=== PATIENT | male | born 1960 | race Caucasian/White ===

== ENCOUNTER 2017-10-10 01:56 | Emergency (ER) | payer MEDICAID, OTHER ==
[~2017-10-10] VITALS: Ht 190.5 cm; Wt 90.7 kg
[2017-10-10 02:28] VITALS: BP 100/60
--- NOTE | 2017-10-10 02:30 | NUR ---
called pt in wr, no reponse
--- NOTE | 2017-10-10 03:00 | NUR ---
called pt in wr, no reponse
--- NOTE | 2017-10-10 03:28 | NUR ---
called pt in wr, no reponse
--- NOTE | 2017-10-10 04:30 | NUR ---
called pt in wr, no reponse
== END 2017-10-10 04:31 | disposition home or self-care (01) ==
LOC: ER 02:04
DX: R11.2 Nausea with vomiting, unspecified (principal); R19.7 Diarrhea, unspecified; Z53.21 Procedure and treatment not carried out due to patient leaving prior to being seen by health care provider
CPT/HCPCS: A4606; Z7610

== ENCOUNTER 2017-10-10 08:33 | Emergency (ER) | payer MEDICAID, OTHER ==
[~2017-10-10] VITALS: Ht 190.5 cm; Wt 90.7 kg
[2017-10-10] MEDS ORDERED: LOPERAMIDE HCL (2 MG CAP) 2 MG CAPSULE PO ONE ×2 (09:20→09:30)
[2017-10-10] MEDS ORDERED: ONDANSETRON HCL/PF 4 MG/2 ML VIAL ONE (09:20)
[2017-10-10] MEDS ORDERED: ONDANSETRON HCL/PF 4 MG/2 ML VIAL IVP ONE (09:30)
[2017-10-10] MEDS ORDERED: IV NS 0.9% 1,000 ML BAG IV ONE (09:30)
[2017-10-10 09:32] LABS: BASOPHILS # (AUTO) 0.2 /CMM (0.0-0.2); BASOPHILS % (AUTO) 1.8 % (0.0-2.0); EOSINOPHILS % (AUTO) 2.1 % (0.0-6.0); HEMATOCRIT 40 % (39-51); HEMOGLOBIN 13.2 g/dL (13.5-17.5); LYMPHOCYTES # (AUTO) 1.1 /CMM (0.8-4.8); LYMPHOCYTES % (AUTO) 11.9 % (20.0-44.0); MEAN CORPUSCULAR HGB CONC 33 g/dl (31.0-36.0); MEAN CORPUSCULAR VOLUME 86 fL (80-96); MONOCYTES # (AUTO) 0.6 /CMM (0.1-1.30); MONOCYTES % (AUTO) 6.7 % (2.0-12.0); NEUTROPHILS # (AUTO) 7.3 /CMM (1.8-8.9); NEUTROPHILS % (AUTO) 77.5 % (43.0-81.0); PLATELET COUNT (AUTO) 454 /CMM (150-450); RDW COEFFICIENT OF VARIATION 12.9 (11.5-15.0); RED BLOOD CELL COUNT(AUTO) 4.65 MIL/uL (4.5-6.0); WHITE BLOOD COUNT (AUTO) 9.4 K/uL (4.3-11.0)
[2017-10-10 09:42] LABS: CALCIUM, SERUM 8.8 mg/dL (8.5-10.1); CREATININE 0.8 mg/dL (0.6-1.3)
[2017-10-10 09:48] LABS: ALBUMIN 3.5 g/dL (3.4-5.0); BILIRUBIN,TOTAL 0.2 mg/dL (0.2-1.0); TOTAL PROTEIN, SERUM 8.7 g/dL (6.4-8.2)
--- NOTE | 2017-10-10 12:51 | NUR ---
IV removed. Catheter intact and site benign. Pressure and 4x4 applied to site. No bleeding noted.
--- NOTE | 2017-10-10 12:52 | NUR ---
Patient discharged to home in stable condition. Written and verbal after care instructions given. Patient verbalizes understanding of instruction.
[2017-10-10 12:53] VITALS: BP 140/70
== END 2017-10-10 12:59 | disposition home or self-care (01) ==
LOC: ER 08:35
DX: E86.0 Dehydration (principal); R11.10 Vomiting, unspecified; R19.7 Diarrhea, unspecified; Z59.0 Homelessness; Z85.028 Personal history of other malignant neoplasm of stomach
CPT/HCPCS: 36415; 80053; 83690; 85025; 96361; 96374; 99284; A4606; J2405; J7030; Z7610

== ENCOUNTER 2017-12-14 18:51 | Emergency (ER) | payer MEDICAID ==
[~2017-12-14] VITALS: Ht 190.5 cm; Wt 90.7 kg
--- NOTE | 2017-12-14 19:10 | NUR ---
BIB RA 860,C/O HEADACHE, PHOTOPHOBIA, AND +N/V X TODAY. PT STATES HE HAS CHRONIC HX OF HEADACHE. PT IS AAOX4. PT'S SPEECH WELL ARTICULATED AND NO S/S OF OBVIOUS WEAKNESS/ DEFORMITIES NOTED. SKIN WNL. RESP EVEN AND UNLABORED. NO S/S OF ACUTE DSITRESS NOTED. PT PLACED ON SHOT CORE DRILL OPERATOR AND POX. PT SAFETY AND COMFORT MEASURES IN PLACE. AWAITING MD FOR EVAL
--- NOTE | 2017-12-14 19:16 | NUR ---
ASSUMED CARE OF PT. PT RESTING IN BED WITH NO S/S OF DISTRESS NOTED
[2017-12-14] MEDS ORDERED: IV NS 0.9% 1,000 ML BAG IV ONE (19:30)
[2017-12-14] MEDS ORDERED: ONDANSETRON HCL/PF 4 MG/2 ML VIAL IVP ONE (19:30)
[2017-12-14] MEDS ORDERED: KETOROLAC TROMETHAMINE INJ 30 MG/ML VIAL IV ONE (19:30)
[2017-12-14] MEDS ORDERED: KETOROLAC TROMETHAMINE INJ 30 MG/ML VIAL ONE (19:45)
[2017-12-14] MEDS ORDERED: ONDANSETRON HCL/PF 4 MG/2 ML VIAL ONE (19:45)
[2017-12-14 19:55] LABS: BASOPHILS # (AUTO) 0.5 /CMM (0.0-0.2); BASOPHILS % (AUTO) 2.2 % (0.0-2.0); EOSINOPHILS % (AUTO) 0.8 % (0.0-6.0); HEMATOCRIT 29 % (39-51); HEMOGLOBIN 10.2 g/dL (13.5-17.5); LYMPHOCYTES % (AUTO) 4.6 % (20.0-44.0); MEAN CORPUSCULAR HEMOGLOBIN 30 PG (26.0-33.0); MEAN CORPUSCULAR HGB CONC 35 g/dl (31.0-36.0); MEAN CORPUSCULAR VOLUME 84 fL (80-96); MONOCYTES # (AUTO) 1.1 /CMM (0.1-1.30); MONOCYTES % (AUTO) 4.8 % (2.0-12.0); NEUTROPHILS # (AUTO) 19.9 /CMM (1.8-8.9); NEUTROPHILS % (AUTO) 87.6 % (43.0-81.0); PLATELET COUNT (AUTO) 437 /CMM (150-450); RDW COEFFICIENT OF VARIATION 13.8 (11.5-15.0); RED BLOOD CELL COUNT(AUTO) 3.45 MIL/uL (4.5-6.0); WHITE BLOOD COUNT (AUTO) 22.7 K/uL (4.3-11.0)
[2017-12-14 20:09] LABS: CALCIUM, SERUM 8.3 mg/dL (8.5-10.1); CARBON DIOXIDE 30 mmol/L (21-32); CHLORIDE 101 mmol/L (98-107); CREATININE 0.8 mg/dL (0.6-1.3); GLUCOSE 116 mg/dL (74-106); POTASSIUM 3.5 mmol/L (3.5-5.1); SODIUM SERUM 137 mmol/L (136-145); UREA NITROGEN, BLOOD 14 mg/dL (7-18)
[2017-12-14 20:12] LABS: ALCOHOL, BLOOD < 3 mg/dL (0-0)
--- NOTE | 2017-12-14 20:28 | NUR ---
PT UNABLE TO PROVIDE URINE AT THIS TIME. WATER PROVIDED TO PT. WILL CONTINUE TO MONITOR PT
[2017-12-14] MEDS ORDERED: ACETAMINOPHEN ES 500 MG TABLET ONE (21:45)
--- NOTE | 2017-12-14 21:49 | NUR ---
Patient discharged to home in stable condition. Written and verbal after care instructions given. Patient verbalizes understanding of instruction.IV removed. Catheter intact and site benign. Pressure and 4x4 applied to site. No bleeding noted. no s/s of distress noted upon discharge. Pt ambulated with steady gait noted.
[2017-12-14 21:50] VITALS: BP 130/74
[2017-12-14] MEDS ORDERED: ACETAMINOPHEN ES 500 MG TABLET PO ONE (22:00)
== END 2017-12-14 21:52 | disposition home or self-care (01) ==
LOC: ER 18:55
DX: R51 Headache (principal); F17.200 Nicotine dependence, unspecified, uncomplicated; Z59.0 Homelessness; Z60.2 Problems related to living alone
CPT/HCPCS: 36415; 70450-TC; 80048-TC; 85025-TC; A4606; G0480; J1885; J2405; J7030; Z7610

== ENCOUNTER 2018-01-01 12:30 | Inpatient (IN) | payer MEDICAID ==
[~2018-01-01] VITALS: Ht 188 cm; Wt 88.5 kg
--- NOTE | 2018-01-01 12:45 | NUR ---
BIBRA 88 C/O NAUSEA, NO VOMITING. PT SLEEPY, AAOX3, CALM & COOPERATIVE, POSS HOMELESS, PT RT LOWER LEG REDNESS/SWOLLEN WITH WOUND INFECTION. PT STABLE NAD NOTED @ THIS TIME.
[2018-01-01] MEDS ORDERED: IV NS 0.9% 1,000 ML BAG IV ONE (13:30)
[2018-01-01] MEDS ORDERED: CLINDAMYCIN 600 MG in IV D5W 100 ML IV ONE (13:30)
[2018-01-01 13:42] LABS: BASOPHILS # (AUTO) 0.6 /CMM (0.0-0.2); BASOPHILS % (AUTO) 3.6 % (0.0-2.0); HEMATOCRIT 35 % (39-51); HEMOGLOBIN 11.5 g/dL (13.5-17.5); LYMPHOCYTES # (AUTO) 0.9 /CMM (0.8-4.8); LYMPHOCYTES % (AUTO) 5.2 % (20.0-44.0); MEAN CORPUSCULAR HEMOGLOBIN 27 PG (26.0-33.0); MEAN CORPUSCULAR HGB CONC 33 g/dl (31.0-36.0); MEAN CORPUSCULAR VOLUME 83 fL (80-96); MONOCYTES % (AUTO) 6.2 % (2.0-12.0); NEUTROPHILS # (AUTO) 14.3 /CMM (1.8-8.9); PLATELET COUNT (AUTO) 373 /CMM (150-450); RDW COEFFICIENT OF VARIATION 14.6 (11.5-15.0); RED BLOOD CELL COUNT(AUTO) 4.25 MIL/uL (4.5-6.0); WHITE BLOOD COUNT (AUTO) 16.8 K/uL (4.3-11.0)
[2018-01-01 13:54] LABS: CALCIUM, SERUM 8.5 mg/dL (8.5-10.1); POTASSIUM 3.5 mmol/L (3.5-5.1)
[2018-01-01 13:57] LABS: INR 1.07 (0.85-1.15)
[2018-01-01 13:59] LABS: ALBUMIN 2.6 g/dL (3.4-5.0); BILIRUBIN,DIRECT 0.1 mg/dL (0.0-0.2); BILIRUBIN,TOTAL 0.4 mg/dL (0.2-1.0); TOTAL PROTEIN, SERUM 8.2 g/dL (6.4-8.2)
[2018-01-01] MEDS ORDERED: ACETAMINOPHEN ES 500 MG TABLET PO ONE (14:00)
--- NOTE | 2018-01-01 14:37 | NUR ---
PT SLEEPING EASILY AWAKEN WITH VERBAL STIMULI. DENIES CP, SOB, DIZZINESS, N/V & NAD NOTED @ THIS TIME. WILL CONT TO MONITOR.
[2018-01-01 14:44] LABS: APPEARANCE,URINE Clear (CLEAR); BILIRUBIN,URINE Negative (NEGATIVE); BLOOD, URINE Negative Ery/uL (NEGATIVE); COLOR,URINE Yellow (YELLOW); KETONES,URINE Negative (NEGATIVE); LEUKOCYTE ESTERASE ,URINE Negative (NEGATIVE); NITRITE, URINE Negative (NEGATIVE); PH,URINE 8.5 (5.0-8.0); PROTEIN,URINE Negative (NEGATIVE); UGLUCOSE Negative (NEGATIVE)
[2018-01-01 14:46] LABS: BACTERIA,URINE None seen /HPF (None Seen); RBC,URINE 0-2 /HPF (0-2); SQUAMOUS EPITHELIAL CELL,UR Rare /HPF (None Seen); WBC,URINE 0-2 /HPF (0-3)
[2018-01-01] MEDS ORDERED: ACETAMINOPHEN ES 500 MG TABLET ONE (15:40)
--- NOTE | 2018-01-01 15:46 | NUR ---
PT IS ASSIGNED 316-1
[2018-01-01] MEDS ORDERED: CLINDAMYCIN 300 MG in IV D5W 50 ML IV SCH (16:00)
[2018-01-01] MEDS ORDERED: CLINDAMYCIN 300 MG in IV D5W 50 ML IV ONE (16:00)
[2018-01-01] MEDS ORDERED: IV NS 0.9% 1,000 ML IV PRN (16:31)
[2018-01-01] MEDS ORDERED: VANCOMYCIN 1 GM in IV NS 0.9% 250 ML IV SCH (17:00)
[2018-01-01] MEDS ORDERED: MAGNESIUM HYDROXIDE 30 ML UDC PO PRN (17:00)
[2018-01-01] MEDS ORDERED: ACETAMINOPHEN 325 MG TABLET PO PRN (17:00)
[2018-01-01] MEDS ORDERED: ONDANSETRON HCL/PF 4 MG/2 ML VIAL IVP PRN (17:00)
[2018-01-01] MEDS ORDERED: MAG HYDROX/AL HYDROX/SIMETH 30 ML UDC PO PRN (17:00)
[2018-01-01] MEDS ORDERED: ZOLPIDEM TARTRATE 5 MG TABLET PO PRN (17:00)
[2018-01-01] MEDS ORDERED: Z GUARD REMEDY 2 OZ OINT TP PRN (17:00)
--- NOTE | 2018-01-01 17:00 | NUR ---
MS RN NOTES RECEIVED PATIENT IN BED ALERT, ORIENTED X3 NO SOB OR ACUTE DISTRESS NOTED. PATIENT NOTED TO BE WITHDRAWN. OBTAINED MINIMAL INFORMATION FROM PATIENT. PATIENT IS HOMELESS. NOTED WITH BILATERAL RIGHT LEG SCABS AND RIGHT HAND SCAB. PERIPHERAL IV ON RIGHT AC INTACT PATENT. BED IN LOW LOCKED POSITION. CALL LIGHT WITHIN REACH. WILL CONTINUE TO MONITOR.
[2018-01-01 17:30] VITALS: BP 116/63
[2018-01-01] MEDS ORDERED: FEE PK DOSING 1 MIN EA MC ONE (17:37)
[2018-01-01] MEDS ORDERED: PIPERACILLIN /TAZOBACTAM 4.5 G in IV NS 0.9% 50 ML IV SCH (18:00)
[2018-01-01] MEDS: PIPERACILLIN /TAZOBACTAM 3.375 G in IV D5W 50 ML IV SCH (19:25)
--- NOTE | 2018-01-01 19:25 | NUR ---
MS/RN OPENING NOTES PT RECEIVED AWAKE, RESTING COMFORTABLY IN BED. A/OX3. ON ROOM AIR, BREATHING EVEN AND UNLABORED. DENIES SOB OR PAIN AT THIS TIME. IV TO LAC PATENT AND INTACT RUNNING IVF ORDERED. BED IN LOW/LOCKED POSITION WITH CALL LIGHT IN REACH. SIDE RAILS UPX3. WILL CONTINUE TO MONITOR
--- NOTE | 2018-01-01 19:26 | NUR ---
MS RN NOTES PATIENT IN BED RESTING NO SOB OR ACUTE DISTRESS NOTED. ALL DUE MEDICATIONS ADMINISTERED. ALL NEEDS MET. WILL ENDORSE TO PM SHIFT ANGE.
[2018-01-01 20:00] VITALS: BP 118/62
--- NOTE | 2018-01-01 20:35 | NUR ---
MS/RN NOTES FOUND RED KNIFE IN PT'S BED. PLACED IN BAG WITH PT'S INTERVENTIONAL SALE CONSULTANT IT AND PLACED IN NURSING STATION SAFE. PT AWARE. SUPERVISOR INSPECTION ROOM MADE AWARE. ADDED TO BELONGINGS CHECKLIST IN CHART.
[2018-01-01] MEDS: VANCOMYCIN 1.25 GM in IV NS 0.9% 500 ML IV SCH (20:41)
[2018-01-02] MEDS: PIPERACILLIN /TAZOBACTAM 3.375 G in IV D5W 50 ML IV SCH ×5 (00:28→23:00)
[2018-01-02] MEDS: HYDROCODONE/APAP 5/325MG 1 EACH TABLET PO PRN ×4 (00:37→17:14)
--- NOTE | 2018-01-02 00:37 | NUR ---
MS/RN NOTES PT C/O 5/10 ABDOMINAL PAIN. REQUESTING PAIN MEDICATION. ADMINISTERED PRN NORCO 5/325 PO ORDERED.
--- NOTE | 2018-01-02 06:43 | NUR ---
MS/RN NOTES PT'S IV INFILTRATED. PT IS A HARD STICK. ATTEMPTED 2X FOR IV INSERTION. PT BECOMING AGITATED. WILL TRY AGAIN LATER LAB TRIED MULTIPLE ATTEMPTS TO DRAW BLOOD, ONLY ABLE TO DRAW ENOUGH BLOOD FOR CBC. WILL TRY AGAIN LATER.
[2018-01-02 07:24] LABS: WHITE BLOOD COUNT (AUTO) 10.8 K/uL (4.3-11.0)
[2018-01-02 07:25] LABS: HEMATOCRIT 34 % (39-51); HEMOGLOBIN 11.4 g/dL (13.5-17.5); MEAN CORPUSCULAR HEMOGLOBIN 28 PG (26.0-33.0); MEAN CORPUSCULAR HGB CONC 34 g/dl (31.0-36.0); MEAN CORPUSCULAR VOLUME 84 fL (80-96); RDW COEFFICIENT OF VARIATION 15.5 (11.5-15.0); RED BLOOD CELL COUNT(AUTO) 4.02 MIL/uL (4.5-6.0)
[2018-01-02 07:26] LABS: BASOPHILS % (AUTO) 0.9 % (0.0-2.0); LYMPHOCYTES % (AUTO) 10.2 % (20.0-44.0); MONOCYTES % (AUTO) 11.3 % (2.0-12.0); NEUTROPHILS % (AUTO) 77.6 % (43.0-81.0); PLATELET COUNT (AUTO) 291 /CMM (150-450)
[2018-01-02 07:27] LABS: BASOPHILS # (AUTO) 0.1 /CMM (0.0-0.2); LYMPHOCYTES # (AUTO) 1.1 /CMM (0.8-4.8); MONOCYTES # (AUTO) 1.2 /CMM (0.1-1.30); NEUTROPHILS # (AUTO) 8.4 /CMM (1.8-8.9)
--- NOTE | 2018-01-02 07:37 | NUR ---
MS/RN CLOSING NOTES PT AWAKE, RESTING IN BED. A/OX3, IMPULSIVE AT TIMES. ON ROOM AIR, BREATHING EVEN AND UNLABORED. NO S/S OF DISTRESS OR SOB. C/O ABDOMINAL PAIN, ADMINISTERED PRN NORCO ORDERED. IV TO LAC INFILTRATED, 2X ATTEMPTS TO REINSERT, PT WANTS TO TRY AGAIN LATER. LAB ONLY ABLE TO COLLECT ENOUGH BLOOD FOR CBC. DAY SHIFT RN MADE AWARE. NO SIGNIFICANT CHANGES OVERNIGHT. KEPT PT COMFORTABLE DURING SHIFT. ALL NEEDS MET. BED IN LOW/LOCKED POSITION WITH CALL LIGHT IN REACH. SIDE RAILS UPX2. ENDORSED TO DAY SHIFT RN ANGE.
--- NOTE | 2018-01-02 07:45 | NUR ---
RN NOTES PATIENT A/OX4, BREATHING EVEN AND UNLABORED, NO SOB NOTED, PATIENT HAS NO PIV ACCESS AT THIS TIME, OFFERED TO INSERT, PATIENT STATED, "LATER". NEEDS ATTENDED, CALL LIGHT WITHIN REACH, WILL CONTINUE TO MONITOR.
[2018-01-02 08:00] VITALS: BP 125/66
[2018-01-02] MEDS: VANCOMYCIN 1.25 GM in IV NS 0.9% 500 ML IV SCH ×2 (08:47→19:26)
--- NOTE | 2018-01-02 12:00 | NUR ---
WOUND CARE CONSULT PATIENT SEEN AND SKIN INTEGRITY ASSESSMENT DONE. PLEASE SEE EXTRACT MIXER ASSESSMENT IN PCS. PATIENT WITH RUSH OF 20. PATIENT IS INDEPENDENT WITH BED MOBILITY AND AMBULATORY WITH STEADY GAIT. ALL PRESSURE ULCER PREVENTION MEASURES NOTED TO BE IN PLACE PER PLAN OF CARE. WILL SEE PRN. Addendum: 01/02/18 at 1239 by SANFORD BECK RN Amended: Links added.
--- NOTE | 2018-01-02 12:03 | NUR ---
Social service consult requested by Dr. Raymond for homelessness. Pt. is a 57 year old male who was admitted to [facility] for cellulitis and sepsis. SW met with pt. bedside. Pt. is alert and oriented x 3. Pt. appeared disheveled. Pt. was grimacing stating he is in pain and not feeling well. Pt. was cooperative with SW during the assessment. Pt. states he has been homeless since 2011 and has been living on the streets. Pt. receives General Relief in the amount of $250/ month and food stamps monthly. SW inquired with pt. if he is linked with [employer] [facility] [employer] for homeless resources. Pt. stated, " he is trying to ." SW encouraged pt. to link up with [employer] so he can initiate a housing referral. Pt. understood. SW offered pt. homeless longterm placement, however, pt. declined. Pt. is willing to accept Homeless longterm resources and food bank resources. SW to give pt. the resources prior to discharge. Pt. denies current drug and alcohol use but has a history of drug use in the past. Pt's drug of choice was cocaine and marijuana. Pt. states he uses marijuana once in a while. Pt. has a psychiatric diagnosis but could not elaborate his diagnosis. Pt. has a history of psychiatric hospitalizations and his last hospitalization was two years ago. Pt. denies suicidal/homicidal ideations and visual/auditory hallucinations at this time. LARISSA updated LEYDA Busby and pt's REYES Watkins regarding pt's discharge plan. No other social service needs are requested at this time. SW is available, if needed. Pt. to sign Homeless Patient Waiver Form prior to discharge.
[2018-01-02 16:00] VITALS: BP 121/71
--- NOTE | 2018-01-02 18:29 | NUR ---
RN NOTES PATIENT A/OX3, REFUSED LAB WORKS ALL DAY,BREATHING EVEN AND UNLABORED, PATIENT SLEPT MOSTLY THROUGHOUT THE SHIFT, COMPLAINED OF PAIN FROM TIME TO TIME, DENIES PAIN AT THIS TIME. NEEDS ATTENDED AND MET, CALL LIGHT WITHIN REACH, WILL ENDORSE TO MISSILE TECHNICIAN FOR ANGE.
--- NOTE | 2018-01-02 19:14 | NUR ---
MS RN OPENING NOTES: RECEIVED PT ON ROOM AIR AND TOLERATING WELL. PT AWAKE AND RESTING IN BED COMFORTABLY. PT HAS IV ON R UA #22G AND IS PATENT AND INTACT. EXPLAINED TO PT THAT HE HAS TO BE CONNECTED TO IV FLUIDS ORDERED BY DOCTOR AND HAS A SCHEDULED ABX. CALL LIGHT WITHIN PT'S REACH. BED KEPT IN LOW, LOCKED POSITION, AND SIDE RAILS X 2UP. WILL CONTINUE TO MONITOR PT.
[2018-01-02 20:00] VITALS: BP 131/66
--- NOTE | 2018-01-02 20:18 | NUR ---
MS RN NOTES: PT REQUESTING FOR SLEEPING AID. PT VERBALIZING HE HASN'T SLEPT FOR DAYS. PT WAS ADMINISTERED AMBIEN 5MG PO. WILL CONTINUE TO MONITOR PT.
[2018-01-02] MEDS: HYDROCODONE/APAP 10/325MG 1 EA TABLET PO PRN (21:13)
--- NOTE | 2018-01-02 21:15 | NUR ---
MS RN NOTES: PT COMPLAINING OF ABDOMEN 8/10 PAIN. PT RESTLESS AND IRRITATED. PT WAS ADMINISTERED NORCO 10. WILL CONTINUE TO MONITOR PT.
--- NOTE | 2018-01-02 23:24 | NUR ---
MS RN NOTES: DR. SAEED ON FLOOR. INFORMED HIM THAT AMBIEN 5MG DID NOT HELP FOR PT. PT STILL NOT SLEEPING AND COMPLAINING HE HAS NOT SLEPT FOR DAYS. GOT ORDER FOR XANAX 1MG PO Q6HR PRN.
[2018-01-02] MEDS ORDERED: ALPRAZOLAM 1 MG TABLET PO PRN (23:30)
[2018-01-03] MEDS: HYDROCODONE/APAP 10/325MG 1 EA TABLET PO PRN ×3 (01:28→10:02)
--- NOTE | 2018-01-03 01:30 | NUR ---
MS RN NOTES: PT COMPLAINING OF 8/10 ABDOMEN PAIN. PT IRRITATED AND REQUESTING FOR PAIN MED. PT WAS ADMINISTERED NORCO 10. WILL CONTINUE TO MONITOR PT.
--- NOTE | 2018-01-03 03:44 | NUR ---
MS RN NOTES: SPOKE WITH DR. SAEED. INFORMED HIM THAT PT IS HAVING DIARRHEA AND PT IS REQUESTING FOR ANTIDIARRHEA AGENT. GOT ORDER FOR IMODIUM 2MG PO Q4HR PRN.
[2018-01-03] MEDS: LOPERAMIDE HCL (2 MG CAP) 2 MG CAPSULE PO PRN ×2 (03:50→08:43)
[2018-01-03] MEDS: PIPERACILLIN /TAZOBACTAM 3.375 G in IV D5W 50 ML IV SCH (05:00)
[2018-01-03 05:30] VITALS: BP 135/79
--- NOTE | 2018-01-03 06:48 | NUR ---
MS RN CLOSING NOTES: ALL NEEDS WERE ATTENDED AND ANTICIPATED FOR. PT ASLEEP AT THIS TIME AND RESTING COMFORTABLY. PT HAS IV ON R ARM AND IS BEING INFUSED WITH IV NS AT 75ML/HR. NO SOB NOTED. NO S/S OF DISTRESS. CALL LIGHT WITHIN PT'S REACH. BED KEPT IN LOW, LOCKED POSITION, AND SIDE RAILS X 2UP. WILL ENDORSE TO AM NURSE FOR ANGE.
--- NOTE | 2018-01-03 07:30 | NUR ---
CONTINUOUS PROCESS TANNER ROTARY DRUM INITIAL NOTES RECEIVED PATIENT SLEEPING IN BED, EASY TO AROUSE, AOX3, NO SIGNS OF DISTRESS, ON ROOM AIR, AMBULATORY, AMINATA 22G IV NS @ 75 ML/HR, RIGHT LEG CELLULITES NOTED, NO PAIN AT THIS TIME, BED IN LOW AND LOCKED POSITION CALL LIGHT WITHIN REACH, WILL CONTINUE TO MONITOR.
[2018-01-03 07:41] LABS: CALCIUM, SERUM 8.5 mg/dL (8.5-10.1); CREATININE 0.8 mg/dL (0.6-1.3); POTASSIUM 3.3 mmol/L (3.5-5.1)
[2018-01-03 07:42] LABS: BASOPHILS # (AUTO) 0.1 /CMM (0.0-0.2); BASOPHILS % (AUTO) 1.3 % (0.0-2.0); EOSINOPHILS % (AUTO) 0.6 % (0.0-6.0); HEMATOCRIT 35 % (39-51); HEMOGLOBIN 11.7 g/dL (13.5-17.5); LYMPHOCYTES # (AUTO) 1.3 /CMM (0.8-4.8); LYMPHOCYTES % (AUTO) 18.9 % (20.0-44.0); MEAN CORPUSCULAR HEMOGLOBIN 29 PG (26.0-33.0); MEAN CORPUSCULAR HGB CONC 34 g/dl (31.0-36.0); MEAN CORPUSCULAR VOLUME 86 fL (80-96); MONOCYTES # (AUTO) 0.8 /CMM (0.1-1.30); MONOCYTES % (AUTO) 11.2 % (2.0-12.0); NEUTROPHILS # (AUTO) 4.6 /CMM (1.8-8.9); PLATELET COUNT (AUTO) 389 /CMM (150-450); RDW COEFFICIENT OF VARIATION 15.8 (11.5-15.0); RED BLOOD CELL COUNT(AUTO) 4.08 MIL/uL (4.5-6.0); WHITE BLOOD COUNT (AUTO) 6.8 K/uL (4.3-11.0)
[2018-01-03 08:00] VITALS: BP 122/86
[2018-01-03] MEDS: VANCOMYCIN 1.25 GM in IV NS 0.9% 500 ML IV SCH (08:02)
[2018-01-03] MEDS ORDERED: POTASSIUM CHLORIDE 20 MEQ TAB.PRT.SR PO SCH (10:30)
[2018-01-03] MEDS ORDERED: SULF1TAB48 PO (10:32)
--- NOTE | 2018-01-03 12:45 | NUR ---
MAINTENANCE TEAM MEMBER NOTES PATIENT DISCHARGE ORDERS GIVEN BY DR MACEY MITCHELL, ALL DISCHARGE PAPERWORK SIGNED AND TEACHING DONE, PRESCRIPTIONS GIVEN TO PATIENT FREQUENCY AND INDICATIONS EXPLAINED FOR ANTIBIOTIC, INSURANCE POLICY NUMBER PROVIDED PER PATIENT REQUEST, IV DC TIP INTACT, PICTURES TAKEN PLACED IN CHART, BELONGINGS LIST SIGNED, ALL NEEDS ADDRESSED AND ALL QUESTIONS ANSWERED, PATIENT TAKEN VIA WHEELCHAIR TO [facility], STATED HE IS GOING TO [place] AND [facility], [facility] TOKEN OFFERED, PATIENT REFUSED STATED HE DOESN'T NEED IT.
== END 2018-01-03 13:00 | disposition home or self-care (01) | DRG 720 ==
LOC: ER 12:35 → MED 16:18
DX: A41.9 Sepsis, unspecified organism (principal); E44.0 Moderate protein-calorie malnutrition; L03.115 Cellulitis of right lower limb; D64.9 Anemia, unspecified; R73.03 Prediabetes; Z85.028 Personal history of other malignant neoplasm of stomach; F17.200 Nicotine dependence, unspecified, uncomplicated; E87.1 Hypo-osmolality and hyponatremia; Z59.0 Homelessness; F29 Unspecified psychosis not due to a substance or known physiological condition
CPT/HCPCS: 36415; 71045-TC; 73590-TC; 80048-TC; 80076-TC; 80202-TC; 81000-TC; 83605-TC; 85025-TC; 85730-TC; 87040-TC; 87081-TC; 87086-TC; A4216; A4606; A6402; J2543; J3370; J3490; J7030; J7040; J7050; J7060; Z7610

== ENCOUNTER 2018-01-24 02:21 | Emergency (ER) | payer MEDICAID ==
[~2018-01-24] VITALS: Ht 177.8 cm; Wt 81.6 kg
[~2018-01-24 02:21] MED LIST: SULF1TAB48 PO
--- NOTE | 2018-01-24 02:45 | NUR ---
PT BBRA FROM STREETS C/C GENERALIZED ABD PAIN NON RADIATING X 3 DAYS. PT C/O NAUSEA AND DIARRHEA. PT IS AAOX3, NAD NOTED. RESPIRATIONS EVEN AND UNLABORED.
--- NOTE | 2018-01-24 03:10 | NUR ---
PT RESTING COMFORTABLY. PT AAOX3. RESPIRATIONS EVEN AND UNLABORED. NAD NOTED. VSS.
[2018-01-24] MEDS ORDERED: IV NS 0.9% 500 ML BAG IV ONE (04:00)
--- NOTE | 2018-01-24 04:00 | NUR ---
PT TAKEN BY RADIOLOGIST FOR CT
[2018-01-24 04:15] LABS: BASOPHILS % (AUTO) 0.3 % (0.0-2.0); EOSINOPHILS % (AUTO) 0.8 % (0.0-6.0); HEMATOCRIT 38 % (39-51); HEMOGLOBIN 12.2 g/dL (13.5-17.5); LYMPHOCYTES % (AUTO) 7.4 % (20.0-44.0); MEAN CORPUSCULAR HEMOGLOBIN 28 PG (26.0-33.0); MEAN CORPUSCULAR HGB CONC 32 g/dl (31.0-36.0); MEAN CORPUSCULAR VOLUME 87 fL (80-96); MONOCYTES # (AUTO) 0.5 /CMM (0.1-1.30); MONOCYTES % (AUTO) 3.6 % (2.0-12.0); NEUTROPHILS # (AUTO) 12.4 /CMM (1.8-8.9); NEUTROPHILS % (AUTO) 87.9 % (43.0-81.0); PLATELET COUNT (AUTO) 325 /CMM (150-450); RDW COEFFICIENT OF VARIATION 17.2 (11.5-15.0); RED BLOOD CELL COUNT(AUTO) 4.38 MIL/uL (4.5-6.0); WHITE BLOOD COUNT (AUTO) 14.1 K/uL (4.3-11.0)
[2018-01-24 04:26] LABS: CALCIUM, SERUM 8.5 mg/dL (8.5-10.1); POTASSIUM 3.7 mmol/L (3.5-5.1)
[2018-01-24 04:32] LABS: ALBUMIN 3.1 g/dL (3.4-5.0); BILIRUBIN,TOTAL 0.2 mg/dL (0.2-1.0)
[2018-01-24 04:34] LABS: TROPONIN I 0.023 ng/mL (0.00-0.056)
[2018-01-24 04:54] LABS: INR 0.99 (0.87-1.13)
--- NOTE | 2018-01-24 05:20 | NUR ---
PT UNABLE TO PROVIDE URINE SAMPLE AT THIS TIME
--- NOTE | 2018-01-24 05:30 | NUR ---
PATIENT RESTING COMFORTABLY. VSS. NAD NOTED. RESPIRATIONS EVEN AND UNLABORED. PT EASILY AROUSABLE.
--- NOTE | 2018-01-24 06:13 | NUR ---
IV removed. Catheter intact and site benign. Pressure and 4x4 applied to site. No bleeding noted. Patient discharged to home in stable condition. Written and verbal after care instructions given. Patient verbalizes understanding of instruction. Pt ambulatory with a steady gait
[2018-01-24 06:16] VITALS: BP 105/56
== END 2018-01-24 06:47 | disposition home or self-care (01) ==
LOC: ER 02:22
DX: R10.84 Generalized abdominal pain (principal); R11.2 Nausea with vomiting, unspecified; R19.7 Diarrhea, unspecified; F17.200 Nicotine dependence, unspecified, uncomplicated; Z60.2 Problems related to living alone; Z59.0 Homelessness; Z85.00 Personal history of malignant neoplasm of unspecified digestive organ
CPT/HCPCS: 36415; 74176; 80048; 80076; 83690; 84484; 85025; 85730; 93005; 99285; A4606; J7040; Z7610

== ENCOUNTER 2018-02-01 19:09 | Emergency (ER) | payer MEDICAID, OTHER ==
[~2018-02-01] VITALS: Ht 182.9 cm; Wt 79.4 kg
--- NOTE | 2018-02-01 21:23 | NUR ---
ASSUMED CARE OF PT AT THIS TIME. PT IS BEING DISCHARGED PER MD. Patient discharged to home in stable condition. Written and verbal after care instructions given. Patient verbalizes understanding of instruction.
[2018-02-01 21:30] VITALS: BP 120/67
== END 2018-02-01 21:30 | disposition home or self-care (01) ==
LOC: ER 19:16
DX: S20.212A Contusion of left front wall of thorax, initial encounter (principal); S80.212A Abrasion, left knee, initial encounter; S60.512A Abrasion of left hand, initial encounter; F17.200 Nicotine dependence, unspecified, uncomplicated; Z85.00 Personal history of malignant neoplasm of unspecified digestive organ; Z59.0 Homelessness; Z60.2 Problems related to living alone; V18.4XXA Pedal cycle driver injured in noncollision transport accident in traffic accident, initial encounter; Y93.89 Activity, other specified; Y92.89 Other specified places as the place of occurrence of the external cause; Y99.8 Other external cause status
CPT/HCPCS: 70450; 71100; 99284; A4606; Z7610

== ENCOUNTER 2019-12-05 22:21 | Emergency (ER) | payer OTHER ==
[~2019-12-05] VITALS: Ht 170.2 cm; Wt 92.5 kg
[2019-12-05] MEDS ORDERED: ONDANSETRON HCL/PF 4 MG/2 ML VIAL ONE (22:55)
[2019-12-05] MEDS ORDERED: ONDANSETRON HCL/PF 4 MG/2 ML VIAL IVP ONE (23:00)
[2019-12-05] MEDS ORDERED: IV NS 0.9% 1,000 ML BAG IV ONE (23:00)
[2019-12-05 23:14] LABS: BASOPHILS # (AUTO) 0.1 /CMM (0.0-0.2); BASOPHILS % (AUTO) 0.3 % (0.0-2.0); EOSINOPHILS % (AUTO) 0.4 % (0.0-6.0); HEMATOCRIT 34 % (39-51); LYMPHOCYTES # (AUTO) 0.5 /CMM (0.8-4.8); MEAN CORPUSCULAR HGB CONC 32 g/dl (31.0-36.0); MEAN CORPUSCULAR VOLUME 85 fL (80-96); MONOCYTES # (AUTO) 0.6 /CMM (0.1-1.30); MONOCYTES % (AUTO) 2.7 % (2.0-12.0); NEUTROPHILS # (AUTO) 21.9 /CMM (1.8-8.9); NEUTROPHILS % (AUTO) 94.6 % (43.0-81.0); PLATELET COUNT (AUTO) 424 /CMM (150-450); RED BLOOD CELL COUNT(AUTO) 4.04 MIL/uL (4.5-6.0); WHITE BLOOD COUNT (AUTO) 23.1 K/uL (4.3-11.0)
--- NOTE | 2019-12-05 23:29 | NUR ---
[facility] PT ASLEEP, EASILY AWAKEN BY VERBAL STIMULI. RR EVEN & UNALBORED. DENIES CP, SOB, DIZZINESS AT THIS TIME. PT SEEN & EVAL'D BY DR. MOTA. MEDICATED PER ERMD ORDER, PT SERENA WELL. WILL CONT TO MONITOR.
[2019-12-05 23:56] LABS: ALANINE AMINOTRANSFERASE 18 U/L (12-78); ALBUMIN 3.2 g/dL (3.4-5.0); ALKALINE PHOSPHATASE 63 U/L (46-116); ASPARTATE AMINOTRANSFERASE 22 U/L (15-37); BILIRUBIN,DIRECT 0.1 mg/dL (0.0-0.2); BILIRUBIN,TOTAL 0.4 mg/dL (0.2-1.0); CALCIUM, SERUM 9.2 mg/dL (8.5-10.1); CARBON DIOXIDE 25 mmol/L (21-32); CHLORIDE 99 mmol/L (98-107); CREATININE 0.9 mg/dL (0.6-1.3); GLUCOSE 123 mg/dL (74-106); POTASSIUM 3.8 mmol/L (3.5-5.1); SODIUM SERUM 133 mmol/L (136-145); TOTAL PROTEIN, SERUM 9.2 g/dL (6.4-8.2); UREA NITROGEN, BLOOD 21 mg/dL (7-18)
--- NOTE | 2019-12-06 01:46 | NUR ---
URINE COLLECTED AND SENT TO LAB.
[2019-12-06 02:26] LABS: APPEARANCE,URINE CLEAR (CLEAR); BILIRUBIN,URINE NEGATIVE (NEGATIVE); BLOOD, URINE TRACE-INTA Ery/uL (NEGATIVE); COLOR,URINE YELLOW (YELLOW); KETONES,URINE NEGATIVE (NEGATIVE); LEUKOCYTE ESTERASE ,URINE NEGATIVE (NEGATIVE); NITRITE, URINE NEGATIVE (NEGATIVE); PH,URINE 6.5 (5.0-8.0); PROTEIN,URINE NEGATIVE (NEGATIVE); UGLUCOSE NEGATIVE (NEGATIVE); UROBILINOGEN,URINE 0.2 EU/dL (0.2)
[2019-12-06 02:42] LABS: BACTERIA,URINE None seen /HPF (None Seen); MUCUS,URINE Few /LPF (None Seen); RBC,URINE 0-2 /HPF (0-2); SQUAMOUS EPITHELIAL CELL,UR Few /HPF (None Seen); WBC,URINE 0-2 /HPF (0-3)
--- NOTE | 2019-12-06 05:05 | NUR ---
PT RESTING COMFORTABLY IN BED. VSS. NO ACUTE DISTRESS NOTED
--- NOTE | 2019-12-06 05:41 | NUR ---
Patient refused to be given written and verbal discharge instructions. Patient verbalizes understanding of instructions. Patient is ambulatory with steady gait. Refuses offer of prison placement. Patient given list of available shelters in surrounding area. ID band removed. IV removed. Catheter intact and site benign. Pressure and 4x4 applied to site. No bleeding noted.
--- NOTE | 2019-12-06 05:41 | NUR ---
PT REFUSED TO SIGN DISCHARGE PAPERWORK.
[2019-12-06 05:45] VITALS: BP 127/84
== END 2019-12-06 05:46 | disposition home or self-care (01) ==
LOC: ER 22:22
DX: B34.9 Viral infection, unspecified (principal); F17.210 Nicotine dependence, cigarettes, uncomplicated; R94.31 Abnormal electrocardiogram [ECG] [EKG]; Z59.0 Homelessness
CPT/HCPCS: 36415; 71045; 80048; 80076; 81001; 84484; 85025; 93005; 96374; 99285; 99406; J2405; J7030; 81000-TC

== ENCOUNTER 2020-02-18 18:20 | Emergency (ER) | payer MEDICAID, OTHER ==
[~2020-02-18] VITALS: Ht 185.4 cm; Wt 85.7 kg
--- NOTE | 2020-02-18 18:35 | NUR ---
CAME IN FOR L UPPER LEG PAIN SINCE THIS MORNING. DENIES ANY INJURY, TO ER BED 11, HOOKED TO MONITOR, CHANGED TO HOSP GOWN, WARM BLANKET PROVIDED, PATIENT AAO x 4, BREATHING EVEN AND UNLABORED, AWAITING MD ALVAREZ.
--- NOTE | 2020-02-18 18:42 | NUR ---
HUSEYIN PIPER AT BEDSIDE
--- NOTE | 2020-02-18 19:03 | NUR ---
ORGANIC SEARCH LEAD AT BEDSIDE FOR LANDRY
[2020-02-18] MEDS ORDERED: ONDANSETRON HCL/PF 4 MG/2 ML VIAL ONE (19:15)
[2020-02-18] MEDS ORDERED: MORPHINE SULFATE INJ 4 MG/ML DISP.SYRIN ONE ×2 (19:15→21:25)
[2020-02-18] MEDS ORDERED: PIPERACILLIN /TAZOBACTAM 3.375 G VIAL IV ONE (19:15)
--- NOTE | 2020-02-18 19:41 | NUR ---
XRAY AT BEDSIDE FOR XRAY
[2020-02-18] MEDS: IV NS 0.9% 1,000 ML BAG IV ONE (19:42)
[2020-02-18] MEDS: MORPHINE SULFATE INJ 2 MG/ML DISP.SYRIN IV ONE (19:42)
[2020-02-18] MEDS: ONDANSETRON HCL/PF 4 MG/2 ML VIAL IVP ONE (19:42)
[2020-02-18] MEDS: PIPERACILLIN /TAZOBACTAM 3.375 G in IV D5W 50 ML IV ONE (19:42)
[2020-02-18] MEDS: VANCOMYCIN 1 GM in IV D5W 250 ML IV ONE (19:45)
[2020-02-18 19:51] LABS: BASOPHILS # (AUTO) 0.1 /CMM (0.0-0.2); BASOPHILS % (AUTO) 0.7 % (0.0-2.0); EOSINOPHILS % (AUTO) 1.1 % (0.0-6.0); HEMATOCRIT 32 % (39-51); HEMOGLOBIN 10.5 g/dL (13.5-17.5); LYMPHOCYTES # (AUTO) 1.3 /CMM (0.8-4.8); LYMPHOCYTES % (AUTO) 8.1 % (20.0-44.0); MEAN CORPUSCULAR HGB CONC 32 g/dl (31.0-36.0); MEAN CORPUSCULAR VOLUME 83 fL (80-96); MONOCYTES # (AUTO) 1.6 /CMM (0.1-1.30); MONOCYTES % (AUTO) 10.1 % (2.0-12.0); NEUTROPHILS # (AUTO) 12.9 /CMM (1.8-8.9); PLATELET COUNT (AUTO) 429 /CMM (150-450); WHITE BLOOD COUNT (AUTO) 16.1 K/uL (4.3-11.0)
[2020-02-18 19:57] LABS: CALCIUM, SERUM 8.6 mg/dL (8.5-10.1); CREATININE 0.9 mg/dL (0.6-1.3); POTASSIUM 4.7 mmol/L (3.5-5.1)
[2020-02-18 20:03] LABS: ALBUMIN 2.7 g/dL (3.4-5.0); BILIRUBIN,DIRECT 0.1 mg/dL (0.0-0.2); BILIRUBIN,TOTAL 0.2 mg/dL (0.2-1.0); TOTAL PROTEIN, SERUM 8.1 g/dL (6.4-8.2)
--- NOTE | 2020-02-18 20:05 | NUR ---
CORONAVIRUS SWAB COLLECTED AND SENT TO LAB
[2020-02-18] MEDS ORDERED: VANCOMYCIN 1 GM VIAL ONE (20:08)
--- NOTE | 2020-02-18 20:35 | NUR ---
URINE COLLECTED AND SENT TO THE LAB.
[2020-02-18 20:57] LABS: APPEARANCE,URINE Clear (CLEAR); BILIRUBIN,URINE Negative (NEGATIVE); BLOOD, URINE Trace-intact Ery/uL (NEGATIVE); COLOR,URINE Yellow (YELLOW); KETONES,URINE Negative (NEGATIVE); LEUKOCYTE ESTERASE ,URINE Negative (NEGATIVE); NITRITE, URINE Negative (NEGATIVE); PROTEIN,URINE Negative (NEGATIVE); UGLUCOSE Negative (NEGATIVE); UROBILINOGEN,URINE 0.2 EU/dL (0.2)
[2020-02-18 21:17] VITALS: BP 133/76
[2020-02-18 21:25] LABS: BACTERIA,URINE Rare /HPF (None Seen); RBC,URINE 0-2 /HPF (0-2); SQUAMOUS EPITHELIAL CELL,UR Rare /HPF (None Seen); WBC,URINE 0-2 /HPF (0-3)
[2020-02-18] MEDS ORDERED: KETOROLAC TROMETHAMINE 15 MG/ML VIAL ONE (21:25)
[2020-02-18] MEDS ORDERED: DEXAMETHASONE SOD PHOSPHATE 10 MG/ML VIAL ONE (21:25)
[2020-02-18] MEDS: KETOROLAC TROMETHAMINE INJ 30 MG/ML VIAL IV ONE (21:32)
[2020-02-18] MEDS: DEXAMETHASONE SOD PHOSPHATE 10 MG/ML VIAL IV ONE (21:32)
[2020-02-18] MEDS: MORPHINE SULFATE INJ 10 MG/ML DISP.SYRIN IV ONE (21:32)
--- NOTE | 2020-02-18 21:42 | NUR ---
MULTIPLE ATTEMPTS TO CONTACT DR. WEBER ([facility] ) FOR PEER TO PEER ([phone])
--- NOTE | 2020-02-18 21:48 | NUR ---
DR. WEBER SPEAKING TO LAKISHA PIPER REGARDING PLAN OF CARE.
--- NOTE | 2020-02-18 23:43 | NUR ---
PT WILL BE TRANSFERRED TO [facility] PER INSURANCE REQUEST ACCEPTING : DR. WEBER NUMBER FOR REPORT: [phone] BED ASSIGNMENT [id number]
--- NOTE | 2020-02-18 23:54 | NUR ---
CALLED [facility] FOR [facility]SPORTATION. CONFIRMATION [id number]. WILL CALL BACK WITH ETA
--- NOTE | 2020-02-19 00:27 | NUR ---
[facility] ETA [id number]
--- NOTE | 2020-02-19 01:19 | NUR ---
REPORT GIVEN TO RAMONA CHAMBERS AT [facility].
--- NOTE | 2020-02-19 02:02 | NUR ---
REPORT GIVEN [facility] AND TRANSFERRING RESPONSIBILITIES.
== END 2020-02-19 02:16 | disposition short-term general hospital (02) ==
LOC: ER 18:30
DX: L03.116 Cellulitis of left lower limb (principal); G89.29 Other chronic pain; M54.5 Low back pain; M54.16 Radiculopathy, lumbar region; Z59.0 Homelessness; E86.0 Dehydration; B35.1 Tinea unguium; D64.9 Anemia, unspecified; Z86.718 Personal history of other venous thrombosis and embolism; Z91.81 History of falling; Z85.028 Personal history of other malignant neoplasm of stomach; F17.290 Nicotine dependence, other tobacco product, uncomplicated; F11.10 Opioid abuse, uncomplicated; R73.03 Prediabetes; E87.8 Other disorders of electrolyte and fluid balance, not elsewhere classified; Z20.828 Contact with and (suspected) exposure to other viral communicable diseases; Z86.59 Personal history of other mental and behavioral disorders
CPT/HCPCS: 36415; 71045; 73503; 73564; 80048; 80076; 81001; 83605; 85025; 87040 ×2; 87077; 87426; 93005; 93971; 96365; 96368; 96375; 96376; 99285; 99406; C9803; J1100; J1885; J2270 ×2; J2405; J2543 ×2; J3370; J7030; J7060; 73502; 81000-TC

== ENCOUNTER 2025-05-06 11:02 | Emergency (ER) | payer OTHER ==
[~2025-05-06] VITALS: Ht 190.5 cm; Wt 81.6 kg
[2025-05-06 11:13] VITALS: TEMP 98.2
[2025-05-06] MEDS ORDERED: CYCLOBENZAPRINE 10 MG TABLET ONE (11:42)
[2025-05-06] MEDS ORDERED: KETOROLAC TROMETHAMINE INJ 30 MG/ML VIAL ONE (11:42)
[2025-05-06] MEDS: KETOROLAC TROMETHAMINE INJ 30 MG/ML VIAL IM ONE (11:47)
[2025-05-06] MEDS: CYCLOBENZAPRINE 10 MG TABLET PO ONE (11:47)
[2025-05-06] MEDS ORDERED: oxyCODONE/APAP (5/325 MG) 1 UDTAB TABLET ONE (12:54)
[2025-05-06] MEDS: oxyCODONE/APAP (5/325 MG) 1 UDTAB TABLET PO ONE (12:57)
[2025-05-06 13:03] LABS: PLATELET COUNT (AUTO) 313 K/uL (150-450); RED BLOOD CELL COUNT(AUTO) 3.68 MIL/uL (4.5-6.0); RED CELL DISTRIBUTION WIDTH 15.6 % (11.5-15.0); WHITE BLOOD COUNT (AUTO) 7.0 K/uL (4.3-11.0)
[2025-05-06 13:11] LABS: CALCIUM, SERUM 8.2 mg/dL (8.5-10.1); CREATININE 0.9 mg/dL (0.6-1.3); SODIUM SERUM 137.0 mmol/L (136-145); UREA NITROGEN, BLOOD 16.0 mg/dL (7-18)
[2025-05-06 13:16] LABS: ASPARTATE AMINOTRANSFERASE 21.0 U/L (15-37); TOTAL PROTEIN, SERUM 6.7 g/dL (6.4-8.2)
[2025-05-06 13:18] LABS: INR 0.96 (0.91-1.10)
[2025-05-06] MEDS ORDERED: ONDANSETRON HCL/PF 4 MG/2 ML VIAL ONE (17:35)
[2025-05-06] MEDS ORDERED: MORPHINE SULFATE INJ 4 MG/ML DISP.SYRIN ONE (17:35)
[2025-05-06] MEDS: ONDANSETRON HCL/PF 4 MG/2 ML VIAL IV ONE (17:39)
[2025-05-06] MEDS: MORPHINE SULFATE INJ 2 MG/ML DISP.SYRIN IV ONE (17:40)
[2025-05-06 18:00] VITALS: BP 120/59; O2SAT 97
[2025-05-06] MEDS ORDERED: HYDROMORPHONE 1 MG/1 ML DISP.SYRIN ONE (18:58)
[2025-05-06] MEDS: HYDROMORPHONE 1 MG/1 ML DISP.SYRIN IV ONE (19:01)
== END 2025-05-06 19:05 | disposition short-term general hospital (02) ==
LOC: ER 11:10
DX: M54.50 Low back pain, unspecified (principal); F17.200 Nicotine dependence, unspecified, uncomplicated; R10.20 Pelvic and perineal pain unspecified side; Z59.00 Homelessness unspecified; W01.0XXA Fall on same level from slipping, tripping and stumbling without subsequent striking against object, initial encounter
CPT/HCPCS: 99291; 74176; 96374; 96375; 85025; 80048; 80076; 36415; 85730; 86850; 96372; J1885; J2270; J2405; J1171